=== PATIENT | female | born 1990 | race Caucasian/White ===

== ENCOUNTER 2017-04-28 12:25 | Emergency (ER) | payer OTHER ==
[~2017-04-28] VITALS: Ht 170.2 cm; Wt 81.8 kg
[2017-04-28] MEDS ORDERED: IBUPROFEN 800 MG TABLET PO ONE (13:15)
[2017-04-28 16:07] VITALS: BP 125/82
== END 2017-04-28 16:28 | disposition home or self-care (01) ==
LOC: EMS 12:27
DX: S93.402A Sprain of unspecified ligament of left ankle, initial encounter (principal); I10 Essential (primary) hypertension; F17.210 Nicotine dependence, cigarettes, uncomplicated; W19.XXXA Unspecified fall, initial encounter; Y93.89 Activity, other specified; Y92.89 Other specified places as the place of occurrence of the external cause; Y99.8 Other external cause status
CPT/HCPCS: 29515; 99284